=== PATIENT | male | born 1965 | race Two or more races ===

== ENCOUNTER 2020-11-08 13:50 | Outpatient (CLI) | payer MEDICARE, OTHER, MEDICAID ==
[2020-11-09 14:10] VITALS: BP 144/92
--- NOTE | 2020-11-10 13:45 | Consultation ---
DATE OF CONSULTATION: 11/08/2020 GASTROENTEROLOGY CONSULTATION CONSULTING PHYSICIAN: Olvin Alanis MD. CHIEF COMPLAINT: Referral for pancreatic cyst. HISTORY OF PRESENT ILLNESS: This is a 55-year-old male, who had endoscopy at [facility] in 2019 showed evidence of esophageal ulcer, esophagitis. The patient also had a CT of the abdomen and pelvis showing evidence of pancreatic cyst. The patient was referred for EUS. PAST MEDICAL HISTORY: 1. GERD. 2. Hypertension. 3. Depression. 4. Seizure disorder. 5. Anemia. 6. Thyroid disease. PAST SURGICAL HISTORY: He has history of angioplasty. FAMILY HISTORY: Father had lymphoma. Brother had diabetes. SOCIAL HISTORY: The patient denies any tobacco, alcohol, or drug use. ALLERGIES: Amoxicillin. REVIEW OF SYSTEMS: Positive for GERD, rectal bleeding, and nausea. PHYSICAL EXAMINATION: VITAL SIGNS: Temperature 99.2, blood pressure 153/81, pulse 89, respirations 20. HEENT: Normocephalic and atraumatic. Sclerae are anicteric. NECK: Supple. No evidence of obvious lymphadenopathy. CARDIOVASCULAR: Regular rate and rhythm. Plus S1, S2. LUNGS: Clear to auscultation bilaterally. ABDOMEN: Positive bowel sounds. Soft and nontender. No rebound. No guarding. No peritoneal sign. EXTREMITIES: No cyanosis, no clubbing, no edema. ASSESSMENT AND PLAN: The patient is a 55-year-old male with history of esophagitis, now is referred for evaluation of pancreatic cyst. The patient would benefit from repeat EGD and also EUS evaluation. We will schedule him for EGD and EUS. The patient was informed of the risks and benefits of procedure and he agreed. Olvin Alanis M.D. DR: BRIEN JOB#: [id number] CC:
== END 2020-11-08 15:50 | disposition home or self-care (01) ==
LOC: PAN 13:50
DX: K21.9 Gastro-esophageal reflux disease without esophagitis (principal); K62.5 Hemorrhage of anus and rectum; R11.0 Nausea; I10 Essential (primary) hypertension; F32.9 Major depressive disorder, single episode, unspecified; G40.909 Epilepsy, unspecified, not intractable, without status epilepticus; K86.2 Cyst of pancreas
CPT/HCPCS: G0463

== ENCOUNTER 2020-11-22 10:20 | Day surgery (SDC) | payer MEDICARE, OTHER, MEDICAID ==
[~2020-11-22] VITALS: Ht 170.2 cm; Wt 70.3 kg
[2020-11-22] VITALS (7 sets, daily range): BP systolic 129–142; BP diastolic 71–99
--- NOTE | 2020-11-22 10:45 | Anethesia Preoperative Eval ---
Anesthesia Pre-op PMH/ROS General Date of Evaluation: Nov 22, 2020 Time of Evaluation: 10:35 Anesthesiologist: cayla ASA Score: ASA 4 Mallampati Score Class I : Soft palate, uvula, fauces, pillars visible Class II: Soft palate, uvula, fauces visible Class III: Soft palate, base of uvula visible Class IV: Only hard plate visible Mallampati Classification: Class II Surgeon: joceline Diagnosis: pacreatic cysts Surgical Procedure: eus Anesthesia History: none Social History: smoking - nonsmoker Family History: no anesthesia problems Allergies: Coded Allergies: AMOXICILLIN (Verified Allergy, Intermediate, Rash, 11/22/20) fever Medications: see eMAR Patient NPO?: Yes Past Medical History Cardiovascular: Reports: HTN, CAD, other - on anticoagulation therapy, hyperlipidemia Gastrointestinal/Genitourinary: Reports: GERD, other - ulcer, hemorrhoids Neurologic/Psychiatric: Reports: depression/anxiety, other - seizure disorder HEENT: Reports: cataract (L), cataract (R), glaucoma Hematology/Immune: Reports: other - hiv+ Musculoskeletal/Integumentary: Reports: OA, DDD, other - back pain, left carpal tunnel syndrome PSxH Narrative: angioplasty w/ 5 stents, Anesthesia Pre-op Phys. Exam Physician Exam Last Vital Signs Date Time Temp Pulse Resp B/P (MAP) Pulse Ox O2 Delivery O2 Flow Rate FiO2 11/22/20 10:36 Room Air 11/22/20 10:36 97.5 18 130/82 100 Constitutional: NAD Neurologic: CN 2-12 intact Cardiovascular: RRR Respiratory: CTA Gastrointestinal: S/NT/ND Airway Exam Mallampati Score: Class II MO: limited Neck: flexible TMD: 2fb ROM: limited Anesthesia Pre-op A/P Labs Microbiology Date/Time Source Procedure Growth Status 11/20/20 11:05 Nasopharynx Coronavirus COVID-19 PCR ([facility]) - Final Complete Labs Test 11/22/20 11:00 11/22/20 11:03 White Blood Count 6.0 K/UL (4.8-10.8) Red Blood Count 4.14 M/UL (4.70-6.10) Hemoglobin 11.4 G/DL (14.2-18.0) Hematocrit 34.7 % (42.0-52.0) Mean Corpuscular Volume 84 FL (80-99) Mean Corpuscular Hemoglobin 27.6 PG (27.0-31.0) Mean Corpuscular Hemoglobin Concent 33.0 G/DL (32.0-36.0) Red Cell Distribution Width 15.0 % (11.6-14.8) Platelet Count 217 K/UL (150-450) Mean Platelet Volume 7.0 FL (6.5-10.1) Neutrophils (%) (Auto) 68.1 % (45.0-75.0) Lymphocytes (%) (Auto) 23.0 % (20.0-45.0) Monocytes (%) (Auto) 7.6 % (1.0-10.0) Eosinophils (%) (Auto) 0.6 % (0.0-3.0) Basophils (%) (Auto) 0.6 % (0.0-2.0) Sodium Level 140 MMOL/L (136-145) Potassium Level 3.3 MMOL/L (3.5-5.1) Chloride Level 105 MMOL/L (98-107) Carbon Dioxide Level 29 MMOL/L (21-32) Anion Gap 6 mmol/L (5-15) Blood Urea Nitrogen 19 mg/dL (7-18) Creatinine 1.0 MG/DL (0.55-1.30) Estimat Glomerular Filtration Rate > 60 mL/min (>60) Glucose Level 104 MG/DL (74-106) Calcium Level 8.1 MG/DL (8.5-10.1) Total Bilirubin 0.3 MG/DL (0.2-1.0) Aspartate Amino Transf (AST/SGOT) 27 U/L (15-37) Alanine Aminotransferase (ALT/SGPT) 32 U/L (12-78) Alkaline Phosphatase 84 U/L (46-116) Total Protein 7.6 G/DL (6.4-8.2) Albumin 3.5 G/DL (3.4-5.0) Globulin 4.1 g/dL Albumin/Globulin Ratio 0.9 (1.0-2.7) Amylase Level 93 U/L (25-115) Lipase 253 U/L (73-393) Risk Assessment & Plan Assessment: asa4 Plan: mac Status Change Before Surgery: No Pre-Antibiotics Drug: Iliana Helms MD Nov 22, 2020 10:45
[2020-11-22] MEDS ORDERED: CYMBALTA60 MG ORAL (10:53)
[2020-11-22] MEDS ORDERED: PROTONIX40 MG ORAL (10:53)
[2020-11-22] MEDS ORDERED: ADDERAL20 MG ORAL (10:53)
[2020-11-22] MEDS ORDERED: TRIUMEQ 600-501 EACH PO (10:53)
[2020-11-22] MEDS ORDERED: TOPIRAMATE100 MG ORAL (10:53)
[2020-11-22] MEDS ORDERED: ASPIRIN81 MG ORAL (10:53)
[2020-11-22] MEDS ORDERED: BRILINTA90 MG PO (10:53)
[2020-11-22] MEDS ORDERED: BACTRIM-DS1 EA ORAL (10:53)
[2020-11-22] MEDS ORDERED: LAMICTAL150 MG ORAL (10:53)
[2020-11-22] MEDS ORDERED: MODAFINIL100 MG ORAL (10:53)
[2020-11-22] MEDS ORDERED: LOSARTAN POTASS50 MG ORAL (10:53)
--- NOTE | 2020-11-22 10:53 | Pre-Procedure Note/Attestation ---
Pre-Procedure Note/Attestation Complete Prior to Procedure Planned Procedure: not applicable Procedure Narrative: egd/EUS Indications for Procedure Pre-Operative Diagnosis: esophagitis, panc cyst Attestation I attest that I discussed the nature of the procedure; its benefits; risks and complications; and alternatives (and the risks and benefits of such alternatives), prior to the procedure, with the patient (or the patient's legal representative government relations). I attest that, if there was a reasonable possibility of needing a blood transfusion, the patient (or the patient's legal representative government relations) was given the [facility] standardized written summary, pursuant to the Alireza Barb Blood Safety Act ([place] Health and Safety Code # 1645, as amended). I attest that I re-evaluated the patient just prior to the surgery and that there has been no change in the patient's H&P, except as documented below: Olvin Alanis MD Nov 22, 2020 10:53
--- NOTE | 2020-11-22 10:53 | Short Stay Surgery H&P ---
History of Present Illness History of Present Illness Chief Complaint see recent office note HPI Chris Rocha is a 55 year old male who was admitted on for Pancriatic Cyst Medication History Scheduled Abacavir/Dolutegravir/Lamivudi (Triumeq 600-50-300 mg Tablet), 1 EACH PO DAILY, (Reported) Aspirin* (Aspirin*), 81 MG ORAL DAILY, (Reported) Dextroamphetamine/Amphetamine (Adderall 20 mg Tablet), 20 MG ORAL TWICE A DAY, (Reported) Duloxetine Hcl* (Cymbalta*), 60 MG ORAL DAILY, (Reported) Lamotrigine* (Lamictal*), 200 MG ORAL DAILY, (Reported) Losartan Potassium* (Losartan Potassium*), 50 MG ORAL DAILY, (Reported) Modafinil* (Provigil), 200 MG ORAL DAILY, (Reported) Pantoprazole* (Protonix*), 40 MG ORAL DAILY, (Reported) Ticagrelor* (Brilinta*), 90 MG PO BID, (Reported) Topiramate* (Topamax*), 100 MG ORAL TWICE A DAY, (Reported) Trimethoprim/Sulfamethoxazole (Bactrim Ds Tablet), 1 TAB ORAL TWICE A DAY, (Reported) Physical Exam Vital Signs Last Vital Signs Date Time Temp Pulse Resp B/P (MAP) Pulse Ox O2 Delivery O2 Flow Rate FiO2 11/22/20 10:36 Room Air 11/22/20 10:36 97.5 18 130/82 100 Plan Attestation Are the patient's medical conditions optimized for surgery? Olvin Alanis MD Nov 22, 2020 10:53
[2020-11-22] MEDS ORDERED: SINGULAIR10 MG ORAL (10:55)
[2020-11-22] MEDS ORDERED: PROAIR HFA8.5 GM INH (10:55)
[2020-11-22] MEDS ORDERED: NASONEX17 GM NASAL (10:55)
[2020-11-22 11:46] LABS: BASOPHILS % (AUTO) 0.6 % (0.0-2.0); EOSINOPHILS % (AUTO) 0.6 % (0.0-3.0); HEMATOCRIT 34.7 % (42.0-52.0); HEMOGLOBIN 11.4 G/DL (14.2-18.0); MEAN CORPUSCULAR VOLUME 84 FL (80-99); MONOCYTES % (AUTO) 7.6 % (1.0-10.0); NEUTROPHILS % (AUTO) 68.1 % (45.0-75.0); PLATELET COUNT 217 K/UL (150-450); RED BLOOD COUNT 4.14 M/UL (4.70-6.10)
[2020-11-22 11:52] LABS: ANION GAP 6 mmol/L (5-15); BLOOD UREA NITROGEN 19 mg/dL (7-18); CALCIUM 8.1 MG/DL (8.5-10.1); CARBON DIOXIDE 29 MMOL/L (21-32); CHLORIDE 105 MMOL/L (98-107); POTASSIUM 3.3 MMOL/L (3.5-5.1); SODIUM 140 MMOL/L (136-145)
[2020-11-22 11:56] LABS: ALANINE AMINOTRANSFERASE 32 U/L (12-78); ALBUMIN 3.5 G/DL (3.4-5.0); ALBUMIN/GLOBULIN RATIO 0.9 (1.0-2.7); ALKALINE PHOSPHATASE 84 U/L (46-116); AMYLASE 93 U/L (25-115); ASPARTATE AMINO TRANSFERASE 27 U/L (15-37); BILIRUBIN,TOTAL 0.3 MG/DL (0.2-1.0)
--- NOTE | 2020-11-22 12:09 | Immediate Post-Op Evaluation ---
Immediate Post-Op Evalulation Immediate Post-Op Evalulation Procedure: eus, egd w/bx Date of Evaluation: Nov 22, 2020 Time of Evaluation: 12:09 IV Fluids: 500ml lr Blood Products: none Estimated Blood Loss: negligible Blood Pressure Systolic: 138 Blood Pressure Diastolic: 90 Pulse Rate: 64 Respiratory Rate: 18 O2 Sat by Pulse Oximetry: 100 Temperature (Fahrenheit): 97.2 Pain Score (1-10): 0 Nausea: No Vomiting: No Complications none Patient Status: awake, reacts, patent Hydration Status: adequate Drug: Iliana Helms MD Nov 22, 2020 12:09
--- NOTE | 2020-11-22 12:12 | 48 Hour Post Anesthesia Eval ---
Post Anesthesia Evaluation Procedure: eus, egd w/bx Date of Evaluation: Nov 22, 2020 Time of Evaluation: 12:11 Blood Pressure Systolic: 137 0: 92 Pulse Rate: 59 Respiratory Rate: 18 Temperature (Fahrenheit): 97.2 O2 Sat by Pulse Oximetry: 100 Airway: patent Nausea: No Vomiting: No Pain Intensity: 0 Hydration Status: adequate Cardiopulmonary Status: stable Mental Status/LOC: patient returned to baseline Post-Anesthesia Complications: none Follow-up care needed: N/A Iliana Coats MD Nov 22, 2020 12:12
[2020-11-22] MEDS ORDERED: Midazolam 2mg/2ml Inj IVP PRN (12:15)
[2020-11-22] MEDS ORDERED: fentaNYL 100 mcg/2 mL IV PRN (12:15)
[2020-11-22] MEDS ORDERED: DiphenhydrAMINE 50mg/ml Inj IVP PRN (12:15)
[2020-11-22] MEDS ORDERED: LR 1000ml 1,000 ML IVLG SCH (12:15)
[2020-11-22] MEDS ORDERED: Atropine Inj 1mg/10ml Syr IVP PRN (12:15)
--- NOTE | 2020-11-22 12:47 | Endoscopy Procedure Note ---
Endoscopy Procedure Note General Indication for Procedure: pancreatic cyst Procedures Performed: EGD, other - EUS Operative Findings/Diagnosis: gastritis, esophagitis Specimen: yes Pt Tolerated Procedure Well: Yes Estimated Blood Loss: none Anesthesia Anesthesiologist: carline Anesthesia: MAC Inserted Devices Implant(s) used?: No GI Core Measures 50 yrs or older w/o bx or poly: Not Applicable 10yrs. F/U recommended: Not Applicable Olvin Alanis MD Nov 22, 2020 12:47
--- NOTE | 2020-11-22 19:00 | Procedure Note ---
DATE OF PROCEDURE: 11/22/2020 SURGEON: Olvin Alanis MD PROCEDURE: Upper endoscopy with biopsy and endoscopic ultrasound. ANESTHESIA: Per Dr. Salinas. INSTRUMENT: Olympus adult flexible upper endoscope and EUS scope. INDICATION: Pancreatic cyst, esophagitis. REASON FOR PROCEDURE: The procedure, risks, benefits, and possible consequences, including hemorrhage, aspiration, perforation and infection, and alternative treatments, were explained to the patient/legal guardian by Dr. Olvin Alanis and the patient/legal guardian understood and accepted these risks. PROCEDURE IN DETAIL: After informed consent was obtained and patient was adequately sedated, Olympus upper endoscope was advanced from mouth into the second portion of the duodenum and retroflexion was performed in the stomach. Patient has diffuse gastritis. Random biopsy from antrum was obtained to rule out H. pylori infection. Patient also has evidence of [id number] distal erosive esophagitis. At this time, the upper endoscope was retrieved. Then, EUS scope was introduced. Started scanning the GE junction, first celiac axis was seen without any obvious celiac axis lymphadenopathy. There was some prominence of vasculature suspicious, but unlikely to be gastric varices. Pancreatic parenchyma in the body and tail grossly within normal limits. Pancreatic duct was not seen, most probably very small. No obvious cyst seen in the pancreatic body and tail. Then, the scope was advanced to the duodenal bulb and second portion of the duodenum. His gallbladder was seen with multiple stones in it, the largest one about 6 mm. Gallbladder was thickened to about 5 mm. Common bile duct measured about 3 mm without any obvious filling defects in it. Pancreatic head was prominent and there was evidence of lobulation and hyperechoic lines suggestive of pancreatitis. May be chronic. No obvious pancreatic duct or common bile duct dilatation of the ampulla. No obvious cyst or mass was seen in the head of the pancreas. At this time, the scope was retrieved and the procedure was terminated. SUMMARY OF FINDINGS: 1. Esophagitis. 2. Gastritis. 3. Gallstones. 4. Possible chronic pancreatitis. RECOMMENDATIONS: Follow laboratories. Follow biopsy results. Patient is to come to the office for further management of his symptoms. I want to thank Dr. Melchor and Dr. Rik Alvares, for this kind referral. Olvin Hamzah Alanis DR: MICAELA JOB#: [id number] CC: Fransisco Melchor M.D.; Fax#: [phone] RIK ALVARES M.D. ; FAX#: [phone]
== END 2020-11-22 12:00 | disposition home or self-care (01) ==
LOC: GAS 10:20
DX: K86.2 Cyst of pancreas (principal); K20.90 Esophagitis, unspecified without bleeding; Z79.82 Long term (current) use of aspirin; Z79.899 Other long term (current) drug therapy; Z88.1 Allergy status to other antibiotic agents; I11.9 Hypertensive heart disease without heart failure; I25.10 Atherosclerotic heart disease of native coronary artery without angina pectoris; E78.5 Hyperlipidemia, unspecified; K21.9 Gastro-esophageal reflux disease without esophagitis; G40.909 Epilepsy, unspecified, not intractable, without status epilepticus; F32.9 Major depressive disorder, single episode, unspecified; F41.9 Anxiety disorder, unspecified; B20 Human immunodeficiency virus [HIV] disease; M19.90 Unspecified osteoarthritis, unspecified site; K29.70 Gastritis, unspecified, without bleeding; K80.80 Other cholelithiasis without obstruction
CPT/HCPCS: 36415; 43231; 43239; 80053; 82150; 82378; 82962; 83690; 85025; 94003; U0004; 94150

== ENCOUNTER 2020-11-29 12:44 | Outpatient (CLI) | payer MEDICARE, OTHER, MEDICAID ==
[~2020-11-29 12:44] MED LIST: ADDERAL20 MG ORAL; ASPIRIN81 MG ORAL; BACTRIM-DS1 EA ORAL; BRILINTA90 MG PO; CYMBALTA60 MG ORAL; LAMICTAL150 MG ORAL; LOSARTAN POTASS50 MG ORAL; MODAFINIL100 MG ORAL; NASONEX17 GM NASAL; PROAIR HFA8.5 GM INH; PROTONIX40 MG ORAL; SINGULAIR10 MG ORAL; TOPIRAMATE100 MG ORAL; TRIUMEQ 600-501 EACH PO
--- NOTE | 2020-11-29 14:40 | General Progress Note ---
Subjective ROS Limited/Unobtainable: Yes Allergies: Coded Allergies: AMOXICILLIN (Verified Allergy, Intermediate, Rash, 11/22/20) fever Objective General Appearance: alert EENT: normal ENT inspection Neck: supple Cardiovascular: normal rate Respiratory/Chest: lungs clear Abdomen: normal bowel sounds, non tender, soft Extremities: non-tender Assessment/Plan Assessment/Plan: s/p EGD and EUS SUMMARY OF FINDINGS: 1. Esophagitis. 2. Gastritis. 3. Gallstones. 4. Possible chronic pancreatitis. nexium BID no elevated lipase or Ca 19-9 kegal exercise RTC prn Olvin Alanis MD Nov 29, 2020 14:40
== END 2020-11-29 14:44 | disposition home or self-care (01) ==
LOC: PAN 12:44
DX: K29.70 Gastritis, unspecified, without bleeding (principal); K20.90 Esophagitis, unspecified without bleeding; K80.80 Other cholelithiasis without obstruction; Z88.1 Allergy status to other antibiotic agents
CPT/HCPCS: 99212